=== PATIENT | female | born 1990 | race Caucasian/White ===

== ENCOUNTER 2017-02-27 22:00 | Emergency (ER) | payer OTHER ==
[2017-02-27 22:20] VITALS: BP 111/72; PULSE 89; RESP 16; TEMP 98.6; O2SAT 98
[2017-02-27] MEDS ORDERED: LURA20TA PO (22:28)
[2017-02-27] MEDS ORDERED: DEPA125T PO (22:28)
[2017-02-27 22:57] LABS: AUTOMATED NEUTROPHIL # 5.3 TH/MM3 (1.8-7.7); BASOPHIL % 0.4 % (0.0-2.0); EOSINOPHIL # 0.1 TH/MM3 (0-0.4); HEMATOCRIT 36.6 % (35.0-46.0); HEMO FLAGS DIFF FINAL; LYMPH % 33.2 % (9.0-44.0); LYMPHOCYTE # 3.3 TH/MM3 (1.0-4.8); MEAN CELL VOLUME 89.8 FL (80.0-100.0); MEAN CORPUSCULAR HEMOGLOBIN 30.7 PG (27.0-34.0); MEAN CORPUSCULAR HGB CONC 34.2 % (32.0-36.0); NEUT % 53.4 % (16.0-70.0); PLATELET COUNT 280 TH/MM3 (150-450); RED BLOOD COUNT 4.07 MIL/MM3 (4.00-5.30); RED CELL DISTRIBUTION WIDTH 14.3 % (11.6-17.2); WHITE BLOOD COUNT 9.9 TH/MM3 (4.0-11.0)
[2017-02-27 23:18] LABS: ANION GAP 9 MEQ/L (5-15)
[2017-02-27 23:28] LABS: ALKALINE PHOSPHATASE 46 U/L (45-117); ALT (GPT) 20 U/L (10-53); AST (GOT) 17 U/L (15-37); BICARBONATE 26.1 MEQ/L (21.0-32.0); BLOOD UREA NITROGEN 12 MG/DL (7-18); CHLORIDE 105 MEQ/L (98-107); GLOMERULAR FILTRATION RATE 103 ML/MIN (>89); POTASSIUM 3.9 MEQ/L (3.5-5.1); SODIUM (NA) 140 MEQ/L (136-145); TOTAL BILIRUBIN ADULT 0.1 MG/DL (0.2-1.0)
--- NOTE | 2017-02-27 23:32 | PD ---
HPI Chief Complaint: Psychiatric Symptoms Time Seen by Provider: 22:15 Travel History International Travel<30 days: No Contact w/Intl Traveler<30days: No Traveled to known affect area: No History of Present Illness HPI PT CAME IN UNDER [employer]. 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 patient stated her ideas were to jump in front of moving traffic and states she still has those thoughts now. ALL: LITHIUM (NO SPECIFIC INTERACTION DESCRIBED) PMHX: MILD RETARDATION AND BIPOLAR PFSH Past Medical History Bipolar Disorder: Yes Medical other: Yes (MILD RETARDATION) Influenza Vaccination: Yes ?: Not LMP: NOW Past Surgical History Surgical History: No Previous Surgery Social History Alcohol Use: No Tobacco Use: No Substance Use: No Allergies-Medications (Allergen,Severity, Reaction): Coded Allergies: lithium (Verified Allergy, Unknown, 02/27/17) Reported Meds & Prescriptions Reported Meds & Active Scripts Active Reported Depakote DR (Divalproex Sodium) 125 Mg Tabdr Unknown Dose PO DAILY Latuda (Lurasidone) 20 Mg Tab Unknown Dose PO DAILY Review of Systems Except as stated in HPI: all other systems reviewed are Neg General / Constitutional: No: Fever Eyes: No: Visual changes HENT: No: Headaches Cardiovascular: No: Chest Pain or Discomfort Respiratory: No: Shortness of Breath Gastrointestinal: No: Abdominal Pain Genitourinary: No: Dysuria Musculoskeletal: No: Pain Skin: No Rash Neurologic: No: Weakness Psychiatric: Positive: Suicidal Ideations Endocrine: No: Polydipsia Hematologic/Lymphatic: No: Easy Bruising Physical Exam Narrative GENERAL: SKIN: Warm and dry. HEAD: Atraumatic. Normocephalic. EYES: Pupils equal and round. No scleral icterus. No injection or drainage. ENT: No nasal bleeding or discharge. Mucous membranes pink and moist. NECK: Trachea midline. No JVD. CARDIOVASCULAR: Regular rate and rhythm. RESPIRATORY: No accessory muscle use. Clear to auscultation. Breath sounds equal bilaterally. GASTROINTESTINAL: Abdomen soft, non-tender, nondistended. Hepatic and splenic margins not palpable. MUSCULOSKELETAL: Extremities without clubbing, cyanosis, or edema. No obvious deformities. NEUROLOGICAL: Awake and alert. No obvious cranial nerve deficits. Motor grossly within normal limits. Five out of 5 muscle strength in the arms and legs. Normal speech. PSYCHIATRIC: DEPRESSED mood and SAD affect Data Data Last Documented VS Vital Signs Date Time Temp Pulse Resp B/P (MAP) Pulse Ox O2 Delivery O2 Flow Rate FiO2 02/27/17 22:20 98.6 89 16 111/72 (85) 98 Orders Orders Complete Blood Count With Diff (02/27/17 22:24) Comprehensive Metabolic Panel (02/27/17 22:24) Ed Urine Pregnancytest Poc (02/27/17 22:24) Electrocardiogram (02/27/17 22:24) Psych Screen (02/27/17 22:24) Drug Screen, Random Urine (02/27/17 22:24) Alcohol (Ethanol) (02/27/17 22:24) Salicylates (Aspirin) (02/27/17 22:24) Tylenol (Acetaminophen) (02/27/17 22:24) Valproic Acid (Depakene) (02/27/17 23:33) Zolpidem (Ambien) (02/28/17 00:15) Labs Laboratory Tests Test 02/27/17 22:20 02/27/17 22:45 Urine Opiates Screen NEG Urine Barbiturates Screen NEG Urine Amphetamines Screen NEG Urine Benzodiazepines Screen NEG Urine Cocaine Screen NEG Urine Cannabinoids Screen NEG White Blood Count 9.9 TH/MM3 Red Blood Count 4.07 MIL/MM3 Hemoglobin 12.5 GM/DL Hematocrit 36.6 % Mean Corpuscular Volume 89.8 FL Mean Corpuscular Hemoglobin 30.7 PG Mean Corpuscular Hemoglobin Concent 34.2 % Red Cell Distribution Width 14.3 % Platelet Count 280 TH/MM3 Mean Platelet Volume 7.4 FL Neutrophils (%) (Auto) 53.4 % Lymphocytes (%) (Auto) 33.2 % Monocytes (%) (Auto) 12.0 % Eosinophils (%) (Auto) 1.0 % Basophils (%) (Auto) 0.4 % Neutrophils # (Auto) 5.3 TH/MM3 Lymphocytes # (Auto) 3.3 TH/MM3 Monocytes # (Auto) 1.2 TH/MM3 Eosinophils # (Auto) 0.1 TH/MM3 Basophils # (Auto) 0.0 TH/MM3 CBC Comment DIFF FINAL Differential Comment Blood Urea Nitrogen 12 MG/DL Creatinine 0.70 MG/DL Random Glucose 87 MG/DL Total Protein 7.8 GM/DL Albumin 3.7 GM/DL Calcium Level 8.4 MG/DL Alkaline Phosphatase 46 U/L Aspartate Amino Transf (AST/SGOT) 17 U/L Alanine Aminotransferase (ALT/SGPT) 20 U/L Total Bilirubin 0.1 MG/DL Sodium Level 140 MEQ/L Potassium Level 3.9 MEQ/L Chloride Level 105 MEQ/L Carbon Dioxide Level 26.1 MEQ/L Anion Gap 9 MEQ/L Estimat Glomerular Filtration Rate 103 ML/MIN Salicylates Level LESS THAN 1.7 MG/DL Acetaminophen Level LESS THAN 2.0 MCG/ML Valproic Acid (Depakene) Level 61 MCG/ML Ethyl Alcohol Level LESS THAN 3 MG/DL MDM Medical Decision Making Medical Screen Exam Complete: Yes Emergency Medical Condition: Yes Medical Record Reviewed: Yes Interpretation(s) nsr, 82, no stemi, nl intervals Differential Diagnosis ANEMIA V DEHYDRATION V electrolyte abnl v depakote od v other coingestions v etoh Narrative Course patient medically cleared after tox screen neg, depakote level not supratherapeutic, no e/o anemia/dehydration or electrolyte abnormality nor any alcohol use. Diagnosis Primary Impression: mchugh act-medically cleared Heron Bran MD Feb 27, 2017 23:32
[2017-02-27 23:40] LABS: ACETAMINOPHEN LESS THAN 2.0 MCG/ML (10.0-30.0); ALCOHOL LESS THAN 3 MG/DL (0-5)
[2017-02-28] MEDS ORDERED: ZOLPIDEM TARTRATE 5 MG TAB PO ONE (00:15)
[2017-02-28 06:12] VITALS: BP 113/56; PULSE 70; RESP 18
[2017-02-28] MEDS ORDERED: DIVA500T3 PO (07:47)
[2017-02-28] MEDS ORDERED: TRAZ50TA12 PO (07:48)
[2017-02-28] MEDS ORDERED: ESCI20TA PO (07:48)
[2017-02-28] MEDS ORDERED: VITA2000 PO (07:49)
[2017-02-28] MEDS ORDERED: MULT-65 PO (07:50)
[2017-02-28] MEDS ORDERED: BENZ0.5T PO (07:51)
[2017-02-28] MEDS ORDERED: LURA1TAB2 PO (07:52)
[2017-02-28] MEDS ORDERED: TYLE325T PO (07:55)
[2017-02-28 11:46] VITALS: BP 116/82; PULSE 75; RESP 18; O2SAT 100
--- NOTE | 2017-02-28 12:02 | PD ---
History of Present Illness Chief Complaint: Psychiatric Symptoms Time Seen by Provider: 12:00 Travel History International Travel<30 Days: No Contact w/Intl Traveler<30days: No Known affected area: No Legal Status Legal Status: Carr Act Carr Act Signed By: Cy Thibodeaux Carr Act Comment: 2016 @ 2014 History of Present Illness: 26-year-old mentally retarded female presenting under a Carr act for making suicidal threats. Patient apparently wants to leave her penitentiary because she was not allowed to get a fish tank. This is what prompted her suicidal thinking. Since her arrival in [facility], the patient has been calm, pleasant and cooperative. She has repeatedly denied any suicidal or homicidal ideation, plan or intent. She has no psychotic symptoms and her cognition is intact. She is verbally alba for safety and she is competent to do so. PFSH Past Medical History Bipolar Disorder: Yes Medical other: Yes (MILD RETARDATION) Influenza Vaccination: Yes ?: Not LMP: NOW Past Surgical History Surgical History: No Previous Surgery Psychiatric History Psychiatric History Hx Psychiatric Treatment: BI- POLAR DISORDER. No current significant objective clinical evidence of bipolar disorder is seen. History of Inpatient Treatment: No Guns or firearms in home: No Social History Hx Alcohol Use: No Hx Tobacco Use: No Hx Substance Use: No Hx of Substance Use Treatment: No Allergies-Medications (Allergen,Severity, Reaction): Coded Allergies: lithium (Verified Allergy, Unknown, 02/28/17) Per MAR sent by [facility] [phone]. Reported Meds & Prescriptions Reported Meds & Active Scripts Active Reported Tylenol (Acetaminophen) 325 Mg Tab 325 Mg PO Q4H PRN Tylenol (Acetaminophen) 325 Mg Tab 325 Mg PO Q4H PRN Latuda (Lurasidone) 60 Mg Tab 60 Mg PO DAILY@1700 Benztropine (Benztropine Mesylate) 0.5 Mg Tab 0.5 Mg PO HS Multi-Vitamin Daily (Multiple Vitamin) 1 Tab Tab 1 Tab PO DAILY Vitamin D3 (Cholecalciferol) 2,000 Unit Cap 2,000 Units PO DAILY Trazodone (Trazodone HCl) 50 Mg Tab 50 Mg PO HS Escitalopram (Escitalopram Oxalate) 20 Mg Tab 20 Mg PO DAILY Divalproex ER (Divalproex Sodium) 500 Mg Tab 500 Mg PO BID Review of Systems Except as stated in HPI: all other systems reviewed are Neg Mental Status Examination Appearance: Appropriate Consciousness: Alert Orientation: x4 Motor Activity: Normal gait Speech: Unremarkable Language: Adequate Fund of Knowledge: Adequate Attention and Concentration: Adequate Memory: Unremarkable Mood: Appropriate Affect: Appropriate Thought Process & Associations: Intact Thought Content: Appropriate Hallucination Type: None Delusion Type: None Suicidal Ideation: No Suicidal Plan: No Suicidal Intention: No Homicidal Ideation: No Homicidal Plan: No Homicidal Intention: No Insight: Adequate Judgment: Adequate MDM Medical Decision Making Medical Record Reviewed: Yes Assessment/Plan Patient interviewed in person by this physician with nurse Quijano. Case discussed with nurse Quijano. Medical record reviewed. Patient does not meet criteria for Carr act or involuntary psychiatric hospitalization. She can be treated on an outpatient basis if she has repeated episodes of frustration and impulsivity. Orders Orders Complete Blood Count With Diff (02/27/17 22:24) Comprehensive Metabolic Panel (02/27/17 22:24) Ed Urine Pregnancytest Poc (02/27/17 22:24) Electrocardiogram (02/27/17 22:24) Psych Screen (02/27/17 22:24) Drug Screen, Random Urine (02/27/17 22:24) Alcohol (Ethanol) (02/27/17 22:24) Salicylates (Aspirin) (02/27/17 22:24) Tylenol (Acetaminophen) (02/27/17 22:24) Valproic Acid (Depakene) (02/27/17 23:33) Zolpidem (Ambien) (02/28/17 00:15) Diet Regular Basic (02/28/17 Breakfast) Diet Regular Basic (02/28/17 Lunch) Results Vital Signs Date Time Temp Pulse Resp B/P (MAP) Pulse Ox O2 Delivery O2 Flow Rate FiO2 02/28/17 11:46 75 18 116/82 (93) 100 Room Air 02/28/17 06:12 70 18 113/56 (75) Room Air 02/27/17 22:20 98.6 89 16 111/72 (85) 98 Laboratory Tests Test 02/27/17 22:20 02/27/17 22:45 Urine Opiates Screen NEG Urine Barbiturates Screen NEG Urine Amphetamines Screen NEG Urine Benzodiazepines Screen NEG Urine Cocaine Screen NEG Urine Cannabinoids Screen NEG White Blood Count 9.9 Red Blood Count 4.07 Hemoglobin 12.5 Hematocrit 36.6 Mean Corpuscular Volume 89.8 Mean Corpuscular Hemoglobin 30.7 Mean Corpuscular Hemoglobin Concent 34.2 Red Cell Distribution Width 14.3 Platelet Count 280 Mean Platelet Volume 7.4 Neutrophils (%) (Auto) 53.4 Lymphocytes (%) (Auto) 33.2 Monocytes (%) (Auto) 12.0 Eosinophils (%) (Auto) 1.0 Basophils (%) (Auto) 0.4 Neutrophils # (Auto) 5.3 Lymphocytes # (Auto) 3.3 Monocytes # (Auto) 1.2 Eosinophils # (Auto) 0.1 Basophils # (Auto) 0.0 CBC Comment DIFF FINAL Differential Comment Blood Urea Nitrogen 12 Creatinine 0.70 Random Glucose 87 Total Protein 7.8 Albumin 3.7 Calcium Level 8.4 Alkaline Phosphatase 46 Aspartate Amino Transf (AST/SGOT) 17 Alanine Aminotransferase (ALT/SGPT) 20 Total Bilirubin 0.1 Sodium Level 140 Potassium Level 3.9 Chloride Level 105 Carbon Dioxide Level 26.1 Anion Gap 9 Estimat Glomerular Filtration Rate 103 Salicylates Level LESS THAN 1.7 Acetaminophen Level LESS THAN 2.0 Valproic Acid (Depakene) Level 61 Ethyl Alcohol Level LESS THAN 3 Diagnosis Primary Impression: Adjustment disorder with mixed disturbance of emotions and conduct Jose Deluna MD Feb 28, 2017 12:02
--- NOTE | 2017-02-28 12:27 | PD ---
Physical Exam Date Seen by Provider: Feb 28, 2017 Narrative 26 y female made comment to stranger that she was going to kill herself by walking into traffic. Pt was seen by previous provider and sent to [facility] for eval by psych. Dr. Deluna saw this pt and lifted the Carr Act. Pt denies SI or HI at this point. She wants a new alf. She will follow up with psych outpatient. Data Data Last Documented VS Vital Signs Date Time Temp Pulse Resp B/P (MAP) Pulse Ox O2 Delivery O2 Flow Rate FiO2 02/28/17 16:07 02/28/17 11:46 75 18 100 Room Air 02/27/17 22:20 98.6 Orders Orders Complete Blood Count With Diff (02/27/17 22:24) Comprehensive Metabolic Panel (02/27/17 22:24) Ed Urine Pregnancytest Poc (02/27/17 22:24) Electrocardiogram (02/27/17 22:24) Psych Screen (02/27/17 22:24) Drug Screen, Random Urine (02/27/17 22:24) Alcohol (Ethanol) (02/27/17 22:24) Salicylates (Aspirin) (02/27/17 22:24) Tylenol (Acetaminophen) (02/27/17 22:24) Valproic Acid (Depakene) (02/27/17 23:33) Zolpidem (Ambien) (02/28/17 00:15) Diet Regular Basic (02/28/17 Breakfast) Diet Regular Basic (02/28/17 Lunch) Divalproex Er (Depakote Er) (02/28/17 12:45) Escitalopram (Lexapro) (02/28/17 12:45) Ed Discharge Order (02/28/17 12:40) Labs Laboratory Tests Test 02/27/17 22:20 02/27/17 22:45 Urine Opiates Screen NEG Urine Barbiturates Screen NEG Urine Amphetamines Screen NEG Urine Benzodiazepines Screen NEG Urine Cocaine Screen NEG Urine Cannabinoids Screen NEG White Blood Count 9.9 TH/MM3 Red Blood Count 4.07 MIL/MM3 Hemoglobin 12.5 GM/DL Hematocrit 36.6 % Mean Corpuscular Volume 89.8 FL Mean Corpuscular Hemoglobin 30.7 PG Mean Corpuscular Hemoglobin Concent 34.2 % Red Cell Distribution Width 14.3 % Platelet Count 280 TH/MM3 Mean Platelet Volume 7.4 FL Neutrophils (%) (Auto) 53.4 % Lymphocytes (%) (Auto) 33.2 % Monocytes (%) (Auto) 12.0 % Eosinophils (%) (Auto) 1.0 % Basophils (%) (Auto) 0.4 % Neutrophils # (Auto) 5.3 TH/MM3 Lymphocytes # (Auto) 3.3 TH/MM3 Monocytes # (Auto) 1.2 TH/MM3 Eosinophils # (Auto) 0.1 TH/MM3 Basophils # (Auto) 0.0 TH/MM3 CBC Comment DIFF FINAL Differential Comment Blood Urea Nitrogen 12 MG/DL Creatinine 0.70 MG/DL Random Glucose 87 MG/DL Total Protein 7.8 GM/DL Albumin 3.7 GM/DL Calcium Level 8.4 MG/DL Alkaline Phosphatase 46 U/L Aspartate Amino Transf (AST/SGOT) 17 U/L Alanine Aminotransferase (ALT/SGPT) 20 U/L Total Bilirubin 0.1 MG/DL Sodium Level 140 MEQ/L Potassium Level 3.9 MEQ/L Chloride Level 105 MEQ/L Carbon Dioxide Level 26.1 MEQ/L Anion Gap 9 MEQ/L Estimat Glomerular Filtration Rate 103 ML/MIN Salicylates Level LESS THAN 1.7 MG/DL Acetaminophen Level LESS THAN 2.0 MCG/ML Valproic Acid (Depakene) Level 61 MCG/ML Ethyl Alcohol Level LESS THAN 3 MG/DL MDM Supervised Visit with SALUD: Yes Diagnosis Primary Impression: Adjustment disorder with mixed disturbance of emotions and conduct Brittany Redding Feb 28, 2017 12:27
[2017-02-28] MEDS ORDERED: ESCITALOPRAM OXALATE 20 MG TAB PO ONE (12:45)
[2017-02-28] MEDS ORDERED: DIVALPROEX SODIUM E.R. 500 MG TAB PO ONE (12:45)
--- NOTE | 2017-03-02 08:50 | EKG ---
Date Performed: 02/27/2017 Time Performed: 22:53:21 PTAGE: 26 years EKG: Sinus rhythm NORMAL ECG NO PREVIOUS TRACING DOCTOR: Malik Del Cid Interpretating Date/Time 03/02/2017 08:48:08
== END 2017-02-28 16:20 | disposition home or self-care (01) ==
LOC: NEPD 22:00 → NEPJ 02-28 16:20
DX: F43.25 Adjustment disorder with mixed disturbance of emotions and conduct (principal); F31.9 Bipolar disorder, unspecified; F70 Mild intellectual disabilities
CPT/HCPCS: 80053; 80164; 80307; 84703; 85025; 93005; 99285

== ENCOUNTER 2017-02-28 19:23 | Observation (INO) | payer OTHER ==
[~2017-02-28] VITALS: Ht 157.5 cm; Wt 68.0 kg
[~2017-02-28 19:23] MED LIST: BENZ0.5T PO; DEPA125T PO; DIVA500T3 PO; ESCI20TA PO; LURA1TAB2 PO; LURA20TA PO; MULT-65 PO; TRAZ50TA12 PO; TYLE325T PO; VITA2000 PO
[2017-02-28 19:41] VITALS: BP 117/68; PULSE 80; RESP 16; TEMP 98.6; O2SAT 98
--- NOTE | 2017-03-01 00:22 | PD ---
HPI Chief Complaint: Psychiatric Symptoms Time Seen by Provider: 00:19 Travel History International Travel<30 days: No Contact w/Intl Traveler<30days: No Traveled to known affect area: No History of Present Illness HPI Patient comes emergency Department under Carr act by police. Patient states she got upset and threw something. Patient denies any medical complaints at this time. Denies any chest pain, shortness of breath, fevers, coughing, headache, nausea, vomiting, or loss or change in bowel or bladder. Denies anything making her symptoms better or worse. PFSH Past Medical History Bipolar Disorder: Yes ?: Unknown Social History Alcohol Use: No Tobacco Use: No Substance Use: No Allergies-Medications (Allergen,Severity, Reaction): Coded Allergies: lithium (Verified Allergy, Unknown, 02/28/17) Per MAR sent by [facility] [phone]. Reported Meds & Prescriptions Reported Meds & Active Scripts Active Reported Tylenol (Acetaminophen) 325 Mg Tab 325 Mg PO Q4H PRN Tylenol (Acetaminophen) 325 Mg Tab 325 Mg PO Q4H PRN Latuda (Lurasidone) 60 Mg Tab 60 Mg PO DAILY@1700 Benztropine (Benztropine Mesylate) 0.5 Mg Tab 0.5 Mg PO HS Multi-Vitamin Daily (Multiple Vitamin) 1 Tab Tab 1 Tab PO DAILY Vitamin D3 (Cholecalciferol) 2,000 Unit Cap 2,000 Units PO DAILY Trazodone (Trazodone HCl) 50 Mg Tab 50 Mg PO HS Escitalopram (Escitalopram Oxalate) 20 Mg Tab 20 Mg PO DAILY Divalproex ER (Divalproex Sodium) 500 Mg Tab 500 Mg PO BID Review of Systems Except as stated in HPI: all other systems reviewed are Neg Physical Exam Narrative GENERAL: Well-developed, overly nourished, in no acute distress, and non-ill appearing. SKIN: Focused skin assessment warm and dry. HEAD: Atraumatic. Normocephalic. EYES: Pupils equal and round. EOMI. No scleral icterus. No injection or drainage. ENT: No nasal bleeding or discharge. Mucous membranes pink and moist. NECK: Trachea midline. Supple. No nuclear rigidity. CARDIOVASCULAR: Regular rate and rhythm. No murmur appreciated. RESPIRATORY: No accessory muscle use. No respiratory distress. Clear to auscultation. Breath sounds equal bilaterally. MUSCULOSKELETAL: No obvious deformities. No clubbing. No cyanosis. No edema. Full range of motion. NEUROLOGICAL: Awake and alert. No obvious cranial nerve deficits. Motor grossly within normal limits. Normal speech. PSYCHIATRIC: Appropriate mood and affect; insight and judgment normal. Data Data Last Documented VS Vital Signs Date Time Temp Pulse Resp B/P (MAP) Pulse Ox O2 Delivery O2 Flow Rate FiO2 02/28/17 19:41 98.6 80 16 117/68 (84) 98 MDM Medical Decision Making Medical Screen Exam Complete: Yes Emergency Medical Condition: Yes Differential Diagnosis Homicidal, suicidal, adjustment disorder Narrative Course Patient was seen and examined. Labs were reviewed from of this month. No additional laboratory studies needed this time.. Patient medically cleared for further treatment and evaluation by psych. Final disposition per psych. Diagnosis Primary Impression: Medical clearance for psychiatric admission Condition: Stable Korey Angelo Mar 01, 2017 00:22
[2017-03-01 00:26] VITALS: BP 107/68; PULSE 87; RESP 20; O2SAT 100
[2017-03-01 08:15] VITALS: BP 111/81; PULSE 87; RESP 20; O2SAT 100
--- NOTE | 2017-03-01 12:16 | PD ---
History of Present Illness Chief Complaint: Psychiatric Symptoms Time Seen by Provider: 12:15 Travel History International Travel<30 Days: No Contact w/Intl Traveler<30days: No Known affected area: No History of Present Illness: 26-year-old female known to this physician, seen yesterday, and returned under a Carr act for throwing something at her [facility]. Patient is not happy at her [facility] and becomes frustrated and acts out. However, she is not voicing any suicidal or homicidal ideation, plan or intent. She demonstrates no psychotic thinking. Her cognition is intact. This physician discussed her changing group homes and that this would be a project for her drum tender. Patient's drum tender reportedly does not care about her. Patient can request a different drum tender and was told so. However, these interactions do not qualify for psychiatric hospitalization. In fact, it would be counter therapeutic to hospitalize patient for these reasons. PFSH Past Medical History Bipolar Disorder: Yes ?: Unknown Psychiatric History Psychiatric History Hx Psychiatric Treatment: BI- POLAR DISORDER. No current significant objective clinical evidence of bipolar disorder is seen.. Once again, no significant objective clinical evidence of bipolar disorder is seen on 03/01/2017 History of Inpatient Treatment: No Social History Hx Alcohol Use: No Hx Tobacco Use: No Hx Substance Use: No Hx of Substance Use Treatment: No Allergies-Medications (Allergen,Severity, Reaction): Coded Allergies: lithium (Verified Allergy, Unknown, 02/28/17) Per MAR sent by [facility] [phone]. Reported Meds & Prescriptions Reported Meds & Active Scripts Active Reported Tylenol (Acetaminophen) 325 Mg Tab 325 Mg PO Q4H PRN Tylenol (Acetaminophen) 325 Mg Tab 325 Mg PO Q4H PRN Latuda (Lurasidone) 60 Mg Tab 60 Mg PO DAILY@1700 Benztropine (Benztropine Mesylate) 0.5 Mg Tab 0.5 Mg PO HS Multi-Vitamin Daily (Multiple Vitamin) 1 Tab Tab 1 Tab PO DAILY Vitamin D3 (Cholecalciferol) 2,000 Unit Cap 2,000 Units PO DAILY Trazodone (Trazodone HCl) 50 Mg Tab 50 Mg PO HS Escitalopram (Escitalopram Oxalate) 20 Mg Tab 20 Mg PO DAILY Divalproex ER (Divalproex Sodium) 500 Mg Tab 500 Mg PO BID Review of Systems Except as stated in HPI: all other systems reviewed are Neg Mental Status Examination Appearance: Appropriate Consciousness: Alert Orientation: x4 Motor Activity: Normal gait Speech: Unremarkable Language: Adequate Fund of Knowledge: Adequate Attention and Concentration: Adequate Memory: Unremarkable Mood: Appropriate Affect: Appropriate Thought Process & Associations: Intact Thought Content: Appropriate Hallucination Type: None Delusion Type: None Suicidal Ideation: No Suicidal Plan: No Suicidal Intention: No Homicidal Ideation: No Homicidal Plan: No Homicidal Intention: No Insight: Adequate Judgment: Adequate MDM Medical Decision Making Medical Record Reviewed: Yes Assessment/Plan Patient interviewed at bedside. Medical record reviewed. Case discussed with nurse Yanni. Patient does not meet criteria for Carr act or involuntary psychiatric hospitalization. Orders Orders Diet Regular Basic (03/01/17 Breakfast) Results Vital Signs Date Time Temp Pulse Resp B/P (MAP) Pulse Ox O2 Delivery O2 Flow Rate FiO2 03/01/17 08:15 87 20 111/81 (91) 100 Room Air 03/01/17 00:26 87 20 107/68 (81) 100 Room Air 02/28/17 19:41 98.6 80 16 117/68 (84) 98 Diagnosis Primary Impression: Adjustment disorder with mixed disturbance of emotions and conduct Condition: Stable Jose Deluna MD Mar 01, 2017 12:16
--- NOTE | 2017-03-01 13:49 | PD ---
Physical Exam Time Seen by Provider: 13:46 Data Data Last Documented VS Vital Signs Date Time Temp Pulse Resp B/P (MAP) Pulse Ox O2 Delivery O2 Flow Rate FiO2 03/01/17 08:15 87 20 111/81 (91) 100 Room Air 02/28/17 19:41 98.6 Orders Orders Diet Regular Basic (03/01/17 Breakfast) Admit Order (Ed Use Only) (03/01/17 13:45) MDM Supervised Visit with SALUD: No Narrative Course Dr. Deluna has evaluated the patient, lifted the Carr act and clear the patient for discharge. Case management has been working on getting the patient back to her [facility] and they will not accept her. Case management has been unable to place the patient and recommends for the patient to be admitted for social issues and unsafe discharge. Call placed to [facility] for admission. [id number]: I spoke with LORI Diallo and the patient will be admitted for observation for unsafe discharge and social issues. Physician Communication Physician Communication LORI Diallo Diagnosis Primary Impression: Adjustment disorder with mixed disturbance of emotions and conduct Additional Impressions: unsafe discharge social issues Admitting Information Admitting Physician Requests: Observation Condition: Stable Verónica Lance Mar 01, 2017 13:49
[2017-03-01 14:28] VITALS: BP 103/67; PULSE 80; RESP 22; O2SAT 96
[2017-03-01] MEDS ORDERED: PILL SPLITTER OTHER PRN (17:00)
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
[2017-03-01 17:31] VITALS: BP 121/85; PULSE 124; RESP 22; TEMP 98.5; O2SAT 97
[2017-03-01] MEDS: LURASIDONE 40 MG TAB PO SCH (18:44)
[2017-03-01 19:23] VITALS: BP 115/60; PULSE 88; RESP 17; TEMP 98.1; O2SAT 99
[2017-03-01] MEDS: BENZTROPINE MESYLATE 1 MG TAB PO SCH (20:23)
[2017-03-01] MEDS: traZODone HCL 50 MG TAB PO SCH (20:24)
[2017-03-01] MEDS: DIVALPROEX SODIUM E.R. 500 MG TAB PO SCH (20:24)
[2017-03-01 23:44] VITALS: BP 114/58; PULSE 89; RESP 17; TEMP 97.9; O2SAT 97
[2017-03-02 04:04] VITALS: BP 112/58; PULSE 89; RESP 17; TEMP 98.1; O2SAT 97
[2017-03-02 07:34] VITALS: BP 108/72; PULSE 80; RESP 18; TEMP 97.7; O2SAT 99
[2017-03-02] MEDS: MULTIVITAMIN TAB PO SCH (08:58)
[2017-03-02] MEDS: CHOLECALCIFEROL (VIT D3) 1000 UNIT TAB PO SCH (08:58)
[2017-03-02] MEDS: ESCITALOPRAM OXALATE 20 MG TAB PO SCH (08:59)
[2017-03-02] MEDS: DIVALPROEX SODIUM E.R. 500 MG TAB PO SCH ×2 (08:59→19:59)
[2017-03-02 11:49] VITALS: BP 100/57; PULSE 80; RESP 16; TEMP 97.4; O2SAT 98
--- NOTE | 2017-03-02 12:42 | HHI.PR ---
Objective Vitals Vital Signs Date Time Temp Pulse Resp B/P (MAP) Pulse Ox O2 Delivery O2 Flow Rate FiO2 03/02/17 11:49 97.4 80 16 100/57 (71) 98 03/02/17 07:34 97.7 80 18 108/72 (84) 99 03/02/17 04:04 98.1 89 17 112/58 (76) 97 03/01/17 23:44 97.9 89 17 114/58 (76) 97 03/01/17 19:23 98.1 88 17 115/60 (78) 99 03/01/17 17:31 98.5 124 22 121/85 (97) 97 03/01/17 17:00 03/01/17 14:28 80 22 103/67 (79) 96 Room Air I/O 03/01/17 03/01/17 03/01/17 03/02/17 03/02/17 03/02/17 07:00 15:00 23:00 07:00 15:00 23:00 Intake Total 500 ml Balance 500 ml Intake Oral 500 ml # Voids 3 Dami Sawant MD Mar 02, 2017 12:42
[2017-03-02 15:28] VITALS: BP 103/68; PULSE 78; RESP 18; TEMP 98.2; O2SAT 99
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
[2017-03-02] MEDS: LURASIDONE 40 MG TAB PO SCH (17:05)
[2017-03-02 19:32] VITALS: BP 127/74; PULSE 78; RESP 18; TEMP 98; O2SAT 98
[2017-03-02] MEDS: BENZTROPINE MESYLATE 1 MG TAB PO SCH (19:59)
[2017-03-02] MEDS: traZODone HCL 50 MG TAB PO SCH (19:59)
[2017-03-03 00:21] VITALS: BP 105/69; PULSE 78; RESP 18; TEMP 98.1; O2SAT 98
[2017-03-03 04:59] VITALS: BP 122/68; PULSE 68; RESP 18; TEMP 97.8; O2SAT 100
[2017-03-03 08:07] VITALS: BP 106/65; PULSE 63; RESP 18; TEMP 98; O2SAT 99
[2017-03-03] MEDS: DIVALPROEX SODIUM E.R. 500 MG TAB PO SCH ×2 (09:40→22:02)
[2017-03-03] MEDS: ESCITALOPRAM OXALATE 20 MG TAB PO SCH (09:40)
[2017-03-03] MEDS: MULTIVITAMIN TAB PO SCH (09:40)
[2017-03-03] MEDS: CHOLECALCIFEROL (VIT D3) 1000 UNIT TAB PO SCH (09:40)
[2017-03-03 11:59] VITALS: BP 100/68; PULSE 74; RESP 16; TEMP 98; O2SAT 98
[2017-03-03 15:33] VITALS: BP 99/60; PULSE 85; RESP 18; TEMP 98.1; O2SAT 98
--- NOTE | 2017-03-03 15:33 | HHI.PR ---
Subjective Remarks Patient says she feels all right. Denies any chest pain or shortness of breath. Denies any nausea or vomiting. denies constipation. Objective Vital Signs Date Time Temp Pulse Resp B/P (MAP) Pulse Ox O2 Delivery O2 Flow Rate FiO2 03/03/17 11:59 98.0 74 16 100/68 (79) 98 03/03/17 08:07 98.0 63 18 106/65 (79) 99 03/03/17 04:59 97.8 68 18 122/68 (86) 100 03/03/17 00:21 98.1 78 18 105/69 (81) 98 03/02/17 19:32 98.0 78 18 127/74 (91) 98 I/O 03/02/17 03/02/17 03/02/17 03/03/17 03/03/17 03/03/17 07:00 15:00 23:00 07:00 15:00 23:00 Intake Total 500 ml 500 ml 500 ml Balance 500 ml 500 ml 500 ml Intake Oral 500 ml 500 ml 500 ml # Voids 3 2 3 # Bowel Movements 1 Objective Remarks GENERAL: Sitting up in bed. Appears comfortable. pt seen with nurse. SKIN: Warm and dry. HEAD: Normocephalic. EYES: No scleral icterus. No injection or drainage. CARDIOVASCULAR: Regular rate and rhythm without murmurs, gallops, or rubs. RESPIRATORY: Breath sounds equal bilaterally. No accessory muscle use. GASTROINTESTINAL: Abdomen soft, non-tender, nondistended. MUSCULOSKELETAL: No cyanosis, or edema. A/P Assessment and Plan Patient seen and examined on 03/03. No changes in management. Patient is a 26-year-old female admitted for //Placement issue . intermediate that she came from refused to take her back and patient herself doesn't want to go back there. manager community outreach consulted //History of bipolar disorder //Mild mental retardation We'll continue on home meds. Discharge Planning Case management assistance appreciated. Osiel Castellon MD Mar 03, 2017 15:33
[2017-03-03] MEDS: LURASIDONE 40 MG TAB PO SCH (17:30)
[2017-03-03 19:29] VITALS: BP 121/75; PULSE 76; RESP 18; TEMP 98.7; O2SAT 99
[2017-03-03] MEDS: traZODone HCL 50 MG TAB PO SCH (22:02)
[2017-03-03] MEDS: BENZTROPINE MESYLATE 1 MG TAB PO SCH (22:03)
[2017-03-04] MEDS: ACETAMINOPHEN 325 MG TAB PO PRN ×2 (01:43→21:17)
[2017-03-04 08:24] VITALS: BP 116/80; PULSE 68; RESP 20; TEMP 97.9; O2SAT 65
[2017-03-04] MEDS: DIVALPROEX SODIUM E.R. 500 MG TAB PO SCH ×2 (09:27→21:17)
[2017-03-04] MEDS: ESCITALOPRAM OXALATE 20 MG TAB PO SCH (09:27)
[2017-03-04] MEDS: MULTIVITAMIN TAB PO SCH (09:27)
[2017-03-04] MEDS: CHOLECALCIFEROL (VIT D3) 1000 UNIT TAB PO SCH (09:28)
--- NOTE | 2017-03-04 10:09 | HHI.PR ---
Subjective Remarks Patient seen walking in [place]. Says she feels fine. No complaints. Objective Vital Signs Date Time Temp Pulse Resp B/P (MAP) Pulse Ox O2 Delivery O2 Flow Rate FiO2 03/04/17 08:24 97.9 68 20 116/80 (92) 65 03/03/17 19:29 98.7 76 18 121/75 (90) 99 03/03/17 15:33 98.1 85 18 99/60 (73) 98 03/03/17 11:59 98.0 74 16 100/68 (79) 98 I/O 03/03/17 03/03/17 03/03/17 03/04/17 03/04/17 03/04/17 07:00 15:00 23:00 07:00 15:00 23:00 Intake Total 500 ml Balance 500 ml Intake Oral 500 ml # Voids 3 5 Objective Remarks GENERAL: In nathan. Appears comfortable. A/P Assessment and Plan Patient seen on 03/04. No changes in management. Patient is a 26-year-old female admitted for //Placement issue . longterm that she came from refused to take her back and patient herself doesn't want to go back there. warranty manager consulted //History of bipolar disorder //Mild mental retardation We'll continue on home meds. Discharge Planning Case management assistance appreciated. Osiel Castellon MD Mar 04, 2017 10:08
[2017-03-04 12:32] VITALS: PULSE 62; RESP 20; TEMP 97.8; O2SAT 96
[2017-03-04 16:28] VITALS: BP 116/68; PULSE 68; RESP 20; TEMP 98.2; O2SAT 98
[2017-03-04] MEDS: LURASIDONE 40 MG TAB PO SCH (17:27)
[2017-03-04 20:08] VITALS: BP 122/66; PULSE 68; RESP 18; TEMP 98; O2SAT 97
[2017-03-04] MEDS: traZODone HCL 50 MG TAB PO SCH (21:16)
[2017-03-04] MEDS: BENZTROPINE MESYLATE 1 MG TAB PO SCH (21:18)
[2017-03-05 06:32] VITALS: BP 103/54; PULSE 61; RESP 18; TEMP 98.7; O2SAT 100
[2017-03-05 08:16] VITALS: BP 103/62; PULSE 70; RESP 15; TEMP 95.7; O2SAT 96
[2017-03-05] MEDS: CHOLECALCIFEROL (VIT D3) 1000 UNIT TAB PO SCH (08:19)
[2017-03-05] MEDS: MULTIVITAMIN TAB PO SCH (08:19)
[2017-03-05] MEDS: DIVALPROEX SODIUM E.R. 500 MG TAB PO SCH (08:19)
[2017-03-05] MEDS: ESCITALOPRAM OXALATE 20 MG TAB PO SCH (08:20)
[2017-03-05] MEDS ORDERED: ALPR.25 PO (09:47)
--- NOTE | 2017-03-05 09:47 | HHI.DCPOC ---
Discharge Care Plan Diagnosis: (1) Adjustment disorder with mixed disturbance of emotions and conduct Goals to Promote Your Health * To prevent worsening of your condition and complications * To maintain your health at the optimal level Directions to Meet Your Goals Take your medications as prescribed Follow your dietary instruction Follow activity as directed Keep your appointments as scheduled Take your immunizations and boosters as scheduled If your symptoms worsen call your PCP, if no PCP go to Urgent Care Center or Emergency Room Smoking is Dangerous to Your Health. Avoid second hand smoke Call the 24-hour hour crisis hotline for domestic abuse at Merari Velasco PA-C Mar 05, 2017 9:47 am
--- NOTE | 2017-03-05 09:55 | HHI.PR ---
Subjective Remarks Follow up for placement issue. The patient is seen ambulating the hallways. She denies any medical complaints. She is looking forward to hopefully going home soon. Objective Vitals Vital Signs Date Time Temp Pulse Resp B/P (MAP) Pulse Ox O2 Delivery O2 Flow Rate FiO2 03/05/17 08:16 95.7 70 15 103/62 (76) 96 03/05/17 06:32 98.7 61 18 103/54 (70) 100 03/04/17 20:08 98.0 68 18 122/66 (84) 97 03/04/17 16:28 98.2 68 20 116/68 (84) 98 03/04/17 12:32 97.8 62 20 96 I/O 03/04/17 03/04/17 03/04/17 03/05/17 03/05/17 03/05/17 07:00 15:00 23:00 07:00 15:00 23:00 # Voids 1 Objective Remarks GENERAL: Well-nourished, well-developed young female patient in [facility]. Ambulatory. SKIN: Warm and dry. No rash. HEENT: Normocephalic. Atraumatic. Pupils equal and round. Mucous membranes pink and moist. NECK: Supple. Trachea midline. CARDIOVASCULAR: Regular rate and rhythm. S1, S2 noted. No murmur appreciated. RESPIRATORY: No accessory muscle use. Clear to auscultation. Breath sounds equal bilaterally. GASTROINTESTINAL: Abdomen soft, non-tender, nondistended. Normoactive bowel sounds x4. MUSCULOSKELETAL: No obvious deformities. Extremities without clubbing, cyanosis , or edema. NEUROLOGICAL: Awake and alert. No obvious cranial nerve deficits. Motor grossly within normal limits. Normal speech. PSYCHIATRIC: Appropriate mood and affect; insight and judgment normal. Medications and IVs Current Medications Medications (Trade) Dose Ordered Sig/Luis Route Start Time Stop Time Status Last Admin (Tylenol) 325 mg Q4H PRN PO 03/01/17 17:00 03/04/17 21:17 (Cogentin) 0.5 mg HS PO 03/01/17 21:00 03/04/17 21:18 (Vitamin D3) 2,000 units DAILY PO 03/02/17 09:00 03/05/17 08:19 (Depakote Er) 500 mg BID PO 03/01/17 21:00 03/05/17 08:19 (Lexapro) 20 mg DAILY PO 03/02/17 09:00 03/05/17 08:20 (Latuda) 60 mg DAILY@1700 PO 03/01/17 17:00 03/04/17 17:27 (Desyrel) 50 mg HS PO 03/01/17 21:00 03/04/17 21:16 (Theragran) 1 tab DAILY PO 03/02/17 09:00 03/05/17 08:19 (Pill Splitter) 1 ea UNSCH PRN OTHER 03/01/17 17:00 A/P Assessment and Plan 26-year-old female with history of mild intellectual disability, bipolar disorder, presents from her [place] [facility] with an episode of aggressive/violent behavior Agitation with Bipolar Disorder and Intellectual Disability: unclear etiology of agitation. Patient has been calm and cooperative throughout admission at [place]. -continue home meds including Lexapro, escitalopram -added xanax 0.25mg q8h prn agitation -evaluated by psychiatry, does not meet criteria for involuntary admission -outpatient follow up with psychiatry Placement issue: initially her [place] [facility] facility did not want to accept this patient back to the facility -porter sample case to assist with discharge planning DVT Prophylaxis: patient is ambulatory Merari Velasco PA-C Mar 05, 2017 9:55 am
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
== END 2017-03-05 14:55 | disposition home or self-care (01) ==
LOC: NEDAMB 19:23 → NEDA 03-01 13:47 → NEPFCDU 03-01 17:09
PROVIDERS: ADMIT Internal Medicine; ATTEND Internal Medicine
DX: F43.25 Adjustment disorder with mixed disturbance of emotions and conduct (principal); F70 Mild intellectual disabilities; F31.9 Bipolar disorder, unspecified; R45.6 Violent behavior; Z79.899 Other long term (current) drug therapy; Z75.1 Person awaiting admission to adequate facility elsewhere
CPT/HCPCS: 99285; G0378

== ENCOUNTER 2017-08-09 19:16 | Inpatient (IN) | payer OTHER ==
[~2017-08-09] VITALS: Ht 157.5 cm; Wt 88.8 kg
[~2017-08-09 19:16] MED LIST changes: +ALPR.25 PO; -DEPA125T PO; -LURA20TA PO
[2017-08-09 19:46] VITALS: BP 125/77; PULSE 91; RESP 18; TEMP 99; O2SAT 98
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
[2017-08-10 02:17] VITALS: BP 95/61; PULSE 72; RESP 18; O2SAT 100
[2017-08-10 07:09] VITALS: BP 97/68; PULSE 74; RESP 17; O2SAT 99
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
[2017-08-10] MEDS ORDERED: ALUMINUM/MAGNESIUM/SIMETH 30 ML CUP PO PRN (14:00)
[2017-08-10] MEDS ORDERED: ACETAMINOPHEN 325 MG TAB PO PRN (14:00)
[2017-08-10] MEDS ORDERED: NICOTINE 21 MG/24 HR PATCH T-DERMAL PRN (14:00)
[2017-08-10] MEDS ORDERED: MAGNESIUM HYDROXIDE SUSP 30 ML CUP PO PRN (14:00)
[2017-08-10] MEDS ORDERED: REMOVE OLD NICODERM (NICOTINE) PATCH T-DERMAL PRN (14:15)
[2017-08-10 14:22] VITALS: BP 125/83; PULSE 96; RESP 18; O2SAT 97
[2017-08-10 16:15] VITALS: BP 131/83; PULSE 85; RESP 17; TEMP 98.1; O2SAT 100
[2017-08-11 06:26] VITALS: BP 105/66; PULSE 79; RESP 16; TEMP 97.7; O2SAT 97
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
[2017-08-11 15:34] LABS: BICARBONATE 23.3 MEQ/L (21.0-32.0); BLOOD UREA NITROGEN 13 MG/DL (7-18); CALCIUM 9.2 MG/DL (8.5-10.1); CHLORIDE 108 MEQ/L (98-107); CHOLESTEROL 137 MG/DL (120-200); CREATININE 0.85 MG/DL (0.50-1.00); GLOMERULAR FILTRATION RATE 82 ML/MIN (>89); GLUCOSE,RANDOM 119 MG/DL (74-106); SODIUM (NA) 142 MEQ/L (136-145); TRIGLYCERIDES 183 MG/DL (42-150)
[2017-08-11 15:37] LABS: CHOLESTEROL/ HDL RATIO 6.11 RATIO; FREE T4 0.89 NG/DL (0.76-1.46); HDL CHOLESTEROL 22.4 MG/DL (40.0-60.0); LDL CHOLESTEROL 78 MG/DL (0-99)
[2017-08-11 18:11] VITALS: BP 121/75; PULSE 81; RESP 18; TEMP 97.2; O2SAT 98
[2017-08-12 06:36] VITALS: BP 104/75; PULSE 85; RESP 18; TEMP 97.4; O2SAT 98
[2017-08-12 13:35] LABS: HEMOGLOBIN A1C 5.4 % (4.3-6.0)
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
[2017-08-12 17:07] VITALS: BP 126/75; PULSE 84; RESP 17; TEMP 98.2; O2SAT 98
[2017-08-13 07:04] VITALS: BP 110/57; PULSE 80; RESP 17; TEMP 97.5; O2SAT 99
--- NOTE | 2017-08-13 16:58 | HHI.PYPN ---
Subjective Remarks Patient seen and examined with nurse. Chart reviewed. We have obtained med list from patient's facility but have been unable to obtain consent from patient 's guardian. Case discussed with nursing staff who notes patient is somatic but not aggressive. Case discussed with counselor who has endeavored, without success, to reach out to family and to half-way. On my exam, patient is requesting discharge noting that she feels "stable." She denies SI/HI. Denies AVH. No mood or psychotic symptoms reported. She says that she has spoken with her public health service officer and believes that she violated probation and so must report back [facility]. No physical complaints reported to me. I once again endeavored to reach patient's guardian, Ms. Laguna and left a generic requesting a call back. Review of Systems Except as stated in HPI: all other systems reviewed are Neg Mental Status Examination Appearance: Appropriate Consciousness: Alert Orientation: x4 Motor Activity: Normal gait Speech: Unremarkable Language: Adequate Fund of Knowledge: Adequate Attention and Concentration: Adequate Memory: Unremarkable Mood: Appropriate Affect: Appropriate (Somewhat child like) Thought Process & Associations: Intact Thought Content: Appropriate Hallucination Type: None Delusion Type: None Suicidal Ideation: No Suicidal Plan: No Suicidal Intention: No Homicidal Ideation: No Homicidal Plan: No Homicidal Intention: No Insight: Poor Judgment: Poor Results Labs Labs reviewed Vitals/IOs Vital Signs Date Time Temp Pulse Resp B/P (MAP) Pulse Ox O2 Delivery O2 Flow Rate FiO2 08/13/17 07:04 97.5 80 17 110/57 (74) 99 08/10/17 14:22 Room Air Assessment & Plan Problem List: (1) Adjustment disorder with mixed disturbance of emotions and conduct ICD Codes: F43.25 - Adjustment disorder with mixed disturbance of emotions and conduct Status: Acute (2) Intellectual disability ICD Codes: F79 - Unspecified intellectual disabilities Assessment & Plan Psychotropic medications remain on hold for lack of consent. Patient is requesting discharge from the hospital today, but counselor has been unable to ascertain where patient would go on discharge. In particular, he has been unable to confirm patient can return to facility. Absent a safe discharge plan , I will retain the patient on the unit for now. Continue other medications and care as ordered. Justification for Cont. Inpt. Discharge planning. Risk for decompensation in less restrictive environment. Discharge Planning Discharge plan to be determined. Request HC Surrog/Guard Advoc?: Yes Gorge Shaffer MD August 13, 2017 16:58
[2017-08-13 17:02] VITALS: BP 125/60; PULSE 87; RESP 16; TEMP 97.9; O2SAT 99
[2017-08-14 06:06] VITALS: BP 95/45; PULSE 83; RESP 18; TEMP 97.5; O2SAT 100
--- NOTE | 2017-08-14 11:47 | HHI.PYPN ---
Subjective Remarks Patient seen and examined with counselor and nurse. Chart reviewed. Case discussed with nursing staff. No behavioral issues noted. Case discussed in treatment team. On my exam today, patient denies SI/HI. Denies AVH. No mood or psychotic symptoms. No physical complaints. Hopeful for discharge soon and remains aware that discharge will likely be to prison. Had teleconference with counselor Jese and patient's [employer] worker Kitty. Kitty notes that patient is not allowed to return to intermediate. She further confirms that patient has violated probation and will have to report to prison once warrant has been obtained. She reports there is no available temporary housing for patient, and so patient is without a safe discharge plan at present. Was able to reach patient's guardian, Ms. Laguna, this afternoon. She confirms that she is patient's guardian and will fax legal paperwork to us for record. She notes that she is a former casework manager for patient. She notes that patient previously received highest level of services from [employer] but has since been downgraded and consequently has been placed in group homes inadequate to meet patient's needs. She notes that there is a FH of BPAD. We discuss that probable discharge plan will be to prison. She provides consent for psychotropics. Review of Systems Except as stated in HPI: all other systems reviewed are Neg Mental Status Examination Appearance: Appropriate Consciousness: Alert Orientation: x4 Motor Activity: Normal gait Speech: Unremarkable Language: Adequate Fund of Knowledge: Adequate Attention and Concentration: Adequate Memory: Unremarkable Mood: Appropriate Affect: Euthymic (Somewhat childlike) Thought Process & Associations: Intact Thought Content: Appropriate Hallucination Type: None Delusion Type: None Suicidal Ideation: No Suicidal Plan: No Suicidal Intention: No Homicidal Ideation: No Homicidal Plan: No Homicidal Intention: No Insight: Poor Judgment: Poor Results Labs Labs reviewed. Vitals/IOs Vital Signs Date Time Temp Pulse Resp B/P (MAP) Pulse Ox O2 Delivery O2 Flow Rate FiO2 08/14/17 06:06 97.5 83 18 95/45 (62) 100 08/10/17 14:22 Room Air Assessment & Plan Problem List: (1) Adjustment disorder with mixed disturbance of emotions and conduct ICD Codes: F43.25 - Adjustment disorder with mixed disturbance of emotions and conduct Status: Acute (2) Intellectual disability ICD Codes: F79 - Unspecified intellectual disabilities Assessment & Plan Resume psychotropics as ordered on outpatient basis: Zyprexa 20mg qHS, Depakote DR 1g BID, Topamax 100mg BID and Lexapro 20mg daily. Check bHCG. Check LFTs in morning as patient had mild transaminitis when last checked, and this may be worsened by Depakote. Transfer patient to lower acuity unit. Continue other meds and care as ordered. Justification for Cont. Inpt. Resuming home meds. No safe discharge plan at present. Discharge Planning Possible d/c to prison later this week. I note for the record my dismay that this is the only viable discharge plan for this patient. Request HC Surrog/Guard Advoc?: Yes Gorge Shaffer MD August 14, 2017 11:47
[2017-08-14] MEDS: BENZTROPINE MESYLATE 1 MG TAB PO SCH (21:33)
[2017-08-14] MEDS: DIVALPROEX DR 500 MG TABEC PO SCH (21:33)
[2017-08-14] MEDS: TOPIRAMATE 100 MG TAB PO SCH (21:33)
[2017-08-14] MEDS: traZODone HCL 100 MG TAB PO SCH (21:33)
[2017-08-14 23:57] VITALS: BP 106/70; PULSE 83; RESP 16
[2017-08-15 06:35] VITALS: BP 100/51; PULSE 65; RESP 18; TEMP 98.5; O2SAT 98
[2017-08-15] MEDS: DIVALPROEX DR 500 MG TABEC PO SCH ×2 (08:49→21:00)
[2017-08-15] MEDS: TOPIRAMATE 100 MG TAB PO SCH ×2 (08:50→20:59)
[2017-08-15] MEDS: ESCITALOPRAM OXALATE 20 MG TAB PO SCH (08:50)
--- NOTE | 2017-08-15 10:07 | HHI.PYPN ---
Subjective Remarks Patient seen and examined in front of nursing station. Chart reviewed. Case discussed with nursing staff. No behavioral issues reported overnight. On my examination today, the patient is somewhat attention seeking and intrusive. She denies any SI/HI. Denies AVH. She does complain of mild subjective tremor now that she is back on psychotropics. I see no objective evidence of tremor. She reports no other side effects from medications. Complains of pruritus on nose, no evidence of rash. No other physical complaints. Review of Systems ROS Limitations: Poor Historian Except as stated in HPI: all other systems reviewed are Neg Mental Status Examination Appearance: Appropriate Consciousness: Alert Orientation: x4 Motor Activity: Normal gait, Other (No hand tremor noted. No dystonias or dyskinesias noted.) Speech: Unremarkable Language: Adequate Fund of Knowledge: Adequate Attention and Concentration: Adequate Memory: Unremarkable Mood: Appropriate Affect: Euthymic (Remains a little childlike) Thought Process & Associations: Intact Thought Content: Appropriate Hallucination Type: None Delusion Type: None Suicidal Ideation: No Suicidal Plan: No Suicidal Intention: No Homicidal Ideation: No Homicidal Plan: No Homicidal Intention: No Insight: Poor Judgment: Poor Results Labs Test 08/14/17 17:48 Beta HCG, Qualitative LESS THAN 1 MIU/ML Labs reviewed Vitals/IOs Vital Signs Date Time Temp Pulse Resp B/P (MAP) Pulse Ox O2 Delivery O2 Flow Rate FiO2 08/15/17 06:35 98.5 65 18 100/51 (67) 98 Assessment & Plan Problem List: (1) Adjustment disorder with mixed disturbance of emotions and conduct ICD Codes: F43.25 - Adjustment disorder with mixed disturbance of emotions and conduct Status: Acute (2) Intellectual disability ICD Codes: F79 - Unspecified intellectual disabilities Assessment & Plan Continue current psychotropics as ordered. I will make Cogentin available as needed in addition to patient's scheduled Cogentin for EPS. Continue other medications and care as ordered. Justification for Cont. Inpt. Risk for decompensation in less restrictive environment. Discharge Planning Pending safe discharge plan. Case discussed with counselor. Request HC Surrog/Guard Advoc?: Yes Gorge Shaffer MD August 15, 2017 10:07
[2017-08-15] MEDS ORDERED: BENZTROPINE MESYLATE 2 MG/2 ML VIAL IM PRN (10:15)
[2017-08-15] MEDS ORDERED: diphenhydrAMINE HCL 2%/ZINC ACETATE 0.1% CREAM 30 APPLIC/30 GM TUBE TOPICAL PRN (10:15)
[2017-08-15] MEDS ORDERED: BENZTROPINE MESYLATE 1 MG TAB PO PRN (10:15)
[2017-08-15 18:11] VITALS: BP 113/53; PULSE 79; RESP 17; TEMP 97.5; O2SAT 97
[2017-08-15] MEDS: traZODone HCL 100 MG TAB PO SCH (21:00)
[2017-08-15] MEDS: BENZTROPINE MESYLATE 1 MG TAB PO SCH (21:00)
[2017-08-16 05:31] VITALS: BP 115/76; PULSE 89; RESP 16; TEMP 98; O2SAT 98
[2017-08-16] MEDS: ESCITALOPRAM OXALATE 20 MG TAB PO SCH (08:19)
[2017-08-16] MEDS: TOPIRAMATE 100 MG TAB PO SCH ×2 (08:19→21:20)
[2017-08-16] MEDS: DIVALPROEX DR 500 MG TABEC PO SCH ×2 (08:19→21:19)
[2017-08-16 08:46] LABS: ALBUMIN 3.6 GM/DL (3.4-5.0); DIRECT BILIRUBIN ADULT 0.1 MG/DL (0.0-0.2)
[2017-08-16 08:48] LABS: INDIRECT BILIRUBIN 0.2 MG/DL (0.0-0.8); TOTAL BILIRUBIN ADULT 0.3 MG/DL (0.2-1.0); TOTAL PROTEIN 7.8 GM/DL (6.4-8.2)
--- NOTE | 2017-08-16 12:40 | HHI.PYPN ---
Subjective Remarks Patient seen and case discussed with nurse. Chart reviewed. Per nursing staff , patient has been no behavioral problem. She is medication compliant. Sleeping and eating well. For me today, patient remains calm and in good behavioral control. No SI or HI voiced. Her case was presented to Carr Act court today and was placed in continuance for 4 weeks with guardian Ms. Laguna to act as GA. Patient's [employer] worker was also present for the hearing. Review of Systems Other Limited ROS today Mental Status Examination Appearance: Appropriate Consciousness: Alert Orientation: Person, Place (At least) Motor Activity: Normal gait, Other (No hand tremor noted. No dystonias or dyskinesias noted.) Speech: Unremarkable Language: Adequate Fund of Knowledge: Adequate Attention and Concentration: Adequate Memory: Unremarkable Mood: Appropriate Affect: Appropriate Thought Process & Associations: Intact Thought Content: Appropriate Hallucination Type: None Delusion Type: None Insight: Poor Judgment: Poor Mental Status Exam Remarks No SI or HI voiced. Results Labs Test 08/16/17 08:03 Total Bilirubin 0.3 MG/DL Direct Bilirubin 0.1 MG/DL Indirect Bilirubin 0.2 MG/DL Aspartate Amino Transf (AST/SGOT) 33 U/L Alanine Aminotransferase (ALT/SGPT) 61 U/L Alkaline Phosphatase 35 U/L Total Protein 7.8 GM/DL Albumin 3.6 GM/DL Labs reviewed. Transaminitis improved compared to previous. Vitals/IOs Vital Signs Date Time Temp Pulse Resp B/P (MAP) Pulse Ox O2 Delivery O2 Flow Rate FiO2 08/16/17 05:31 98.0 89 16 115/76 (89) 98 Assessment & Plan Problem List: (1) Adjustment disorder with mixed disturbance of emotions and conduct ICD Codes: F43.25 - Adjustment disorder with mixed disturbance of emotions and conduct Status: Acute (2) Intellectual disability ICD Codes: F79 - Unspecified intellectual disabilities Assessment & Plan Continue current psychotropics as ordered. I have ordered a Depakote and ammonia level to be drawn over the weekend. Continue to monitor on the inpatient unit. Continue other medications and care as ordered. Justification for Cont. Inpt. No safe discharge plan at present. Discharge Planning Pending safe discharge plan. Case discussed with counselor. Request HC Surrog/Guard Advoc?: Yes Gorge Shaffer MD August 16, 2017 12:40
[2017-08-16 16:55] VITALS: BP 121/70; PULSE 78; RESP 16; TEMP 98.2; O2SAT 99
[2017-08-16] MEDS: BENZTROPINE MESYLATE 1 MG TAB PO SCH (21:18)
[2017-08-16] MEDS: traZODone HCL 100 MG TAB PO SCH (21:20)
[2017-08-17 05:32] VITALS: BP 94/69; PULSE 61; RESP 16; TEMP 98.4; O2SAT 98
[2017-08-17 06:14] VITALS: BP 112/70; PULSE 72
[2017-08-17] MEDS: DIVALPROEX DR 500 MG TABEC PO SCH ×2 (09:23→21:11)
[2017-08-17] MEDS: TOPIRAMATE 100 MG TAB PO SCH ×2 (09:23→21:12)
[2017-08-17] MEDS: ESCITALOPRAM OXALATE 20 MG TAB PO SCH (09:23)
--- NOTE | 2017-08-17 11:38 | HHI.PYPN ---
Subjective Remarks Patient seen in the nathan with nurse Nesha, chart reviewed, patient complaint medications, patient discussed with nurse. Patient calm and pleasant with me in a somewhat simple and childlike in her responses. She also appears somewhat manipulative. Not complaining of some urinary incontinence though no moves significant dysuria. We will check urinalysis. Patient has been compliant with medications including the Depakote. I will order a Depakote blood level for tomorrow morning. Patient denies suicidality voices or visions. Review of Systems Genitourinary: COMPLAINS OF: Urinary incontinence, Urgency Except as stated in HPI: all other systems reviewed are Neg Mental Status Examination Appearance: Appropriate Consciousness: Alert Orientation: Person, Place (At least) Motor Activity: Normal gait, Other (No hand tremor noted. No dystonias or dyskinesias noted.) Speech: Unremarkable Language: Adequate Fund of Knowledge: Adequate Attention and Concentration: Adequate Memory: Unremarkable Mood: Appropriate Affect: Appropriate Thought Process & Associations: Intact Thought Content: Appropriate Hallucination Type: None Delusion Type: None Insight: Poor Judgment: Poor Results Vitals/IOs Vital Signs Date Time Temp Pulse Resp B/P (MAP) Pulse Ox O2 Delivery O2 Flow Rate FiO2 08/17/17 06:14 72 112/70 (84) 08/17/17 05:32 98.4 16 98 Assessment & Plan Problem List: (1) Adjustment disorder with mixed disturbance of emotions and conduct ICD Codes: F43.25 - Adjustment disorder with mixed disturbance of emotions and conduct Status: Acute (2) Intellectual disability ICD Codes: F79 - Unspecified intellectual disabilities Assessment & Plan Estimated LOS: days patient continues somewhat childlike and simple, some complaints of urinary incontinence. We will check UA, we will also check Depakote blood level in the a.m. Justification for Cont. Inpt. At this time patient would decompensate a place to a lower level of care Discharge Planning To be determined Request HC Surrog/Guard Advoc?: Yes Tremayne Gutierrez MD August 17, 2017 11:38
[2017-08-17 16:44] VITALS: BP 117/68; PULSE 79; RESP 17; TEMP 98.6; O2SAT 99
[2017-08-17 17:29] LABS: AMORPHOUS SEDIMENT, URINE FEW; BILIRUBIN, URINE NEG (NEG); BLOOD, URINE NEG (NEG); GLUCOSE,URINE NEG (NEG); KETONE, URINE NEG (NEG); NITRITE,URINE NEG (NEG); PH, URINE 7.5 (5.0-8.5); URINE COLOR YELLOW (YELLW/STRAW); URINE LEUKOCYTE ESTERASE NEG (NEG)
[2017-08-17] MEDS: BENZTROPINE MESYLATE 1 MG TAB PO SCH (21:10)
[2017-08-17] MEDS: traZODone HCL 100 MG TAB PO SCH (21:12)
[2017-08-18 06:05] VITALS: BP 110/60; PULSE 90; RESP 18; TEMP 98.1; O2SAT 98
[2017-08-18] MEDS: TOPIRAMATE 100 MG TAB PO SCH ×2 (08:50→21:13)
[2017-08-18] MEDS: ESCITALOPRAM OXALATE 20 MG TAB PO SCH (08:50)
[2017-08-18] MEDS: DIVALPROEX DR 500 MG TABEC PO SCH ×2 (08:51→21:12)
--- NOTE | 2017-08-18 12:15 | HHI.PYPN ---
Subjective Remarks Patient was seen and case discussed with nursing. Patient is pleasant and behaving well on the unit. Describes her mood today as "tired." Interacting with others. Compliant with medications. No outbursts Mental Status Examination Appearance: Appropriate Consciousness: Alert Orientation: Person, Place (At least) Motor Activity: Normal gait, Other (No hand tremor noted. No dystonias or dyskinesias noted.) Speech: Unremarkable Language: Adequate Fund of Knowledge: Adequate Attention and Concentration: Adequate Memory: Unremarkable Mood: Appropriate Affect: Appropriate Thought Process & Associations: Intact Thought Content: Appropriate Hallucination Type: None Delusion Type: None Insight: Poor Judgment: Poor Results Labs Test 08/18/17 08:25 Valproic Acid (Depakene) Level 80 MCG/ML Vitals/IOs Vital Signs Date Time Temp Pulse Resp B/P (MAP) Pulse Ox O2 Delivery O2 Flow Rate FiO2 08/18/17 06:05 98.1 90 18 110/60 (77) 98 Intake and Output 08/18/17 08/18/17 08/19/17 08:00 16:00 00:00 Intake Total 240 ml Balance 240 ml Assessment & Plan Problem List: (1) Adjustment disorder with mixed disturbance of emotions and conduct ICD Codes: F43.25 - Adjustment disorder with mixed disturbance of emotions and conduct Status: Acute (2) Intellectual disability ICD Codes: F79 - Unspecified intellectual disabilities Assessment & Plan Continue current treatment plan Justification for Cont. Inpt. Patient would decompensate in a less restrictive setting Request HC Surrog/Guard Advoc?: Yes Satya Major DO August 18, 2017 12:15
[2017-08-18 17:30] VITALS: BP_SYST 112; BP_SYST 99; BP_DIAS 72; PULSE 78; RESP 18; TEMP 98.2
[2017-08-18] MEDS: BENZTROPINE MESYLATE 1 MG TAB PO SCH (21:11)
[2017-08-18] MEDS: traZODone HCL 100 MG TAB PO SCH (21:12)
[2017-08-19 05:46] VITALS: BP 101/60; PULSE 58; RESP 16; TEMP 98.1; O2SAT 99
[2017-08-19] MEDS: DIVALPROEX DR 500 MG TABEC PO SCH ×2 (08:53→21:32)
[2017-08-19] MEDS: TOPIRAMATE 100 MG TAB PO SCH ×2 (08:53→21:32)
[2017-08-19] MEDS: ESCITALOPRAM OXALATE 20 MG TAB PO SCH (08:53)
--- NOTE | 2017-08-19 12:26 | HHI.PYPN ---
Subjective Remarks Patient was seen and case discussed with nursing. Patient is sociable and behaving well on the unit. Compliant with medications. No outbursts today. Behavior remains childlike Mental Status Examination Appearance: Appropriate Consciousness: Alert Orientation: Person, Place (At least) Motor Activity: Normal gait, Other (No hand tremor noted. No dystonias or dyskinesias noted.) Speech: Unremarkable Language: Adequate Fund of Knowledge: Adequate Attention and Concentration: Adequate Memory: Unremarkable Mood: Appropriate Affect: Appropriate Thought Process & Associations: Intact Thought Content: Appropriate Hallucination Type: None Delusion Type: None Insight: Poor Judgment: Poor Results Vitals/IOs Vital Signs Date Time Temp Pulse Resp B/P (MAP) Pulse Ox O2 Delivery O2 Flow Rate FiO2 08/19/17 05:46 98.1 58 16 101/60 (74) 99 Assessment & Plan Problem List: (1) Adjustment disorder with mixed disturbance of emotions and conduct ICD Codes: F43.25 - Adjustment disorder with mixed disturbance of emotions and conduct Status: Acute (2) Intellectual disability ICD Codes: F79 - Unspecified intellectual disabilities Assessment & Plan Continue current treatment plan Justification for Cont. Inpt. Patient would decompensate in a less restrictive setting Request HC Surrog/Guard Advoc?: Yes Satya Major DO August 19, 2017 12:26
[2017-08-19 17:56] VITALS: BP 93/61; PULSE 74; RESP 16; TEMP 98; O2SAT 99
[2017-08-19] MEDS: traZODone HCL 100 MG TAB PO SCH (21:32)
[2017-08-19] MEDS: BENZTROPINE MESYLATE 1 MG TAB PO SCH (21:32)
[2017-08-20 06:07] VITALS: BP 104/61; PULSE 64; RESP 17; TEMP 98.4; O2SAT 99
[2017-08-20] MEDS: DIVALPROEX DR 500 MG TABEC PO SCH ×2 (08:44→20:50)
[2017-08-20] MEDS: TOPIRAMATE 100 MG TAB PO SCH ×2 (08:45→20:52)
[2017-08-20] MEDS: ESCITALOPRAM OXALATE 20 MG TAB PO SCH (08:45)
--- NOTE | 2017-08-20 09:03 | HHI.PYPN ---
Subjective Remarks Patient seen and examined in front of nursing station. Chart reviewed. Case discussed with nursing staff. Patient has been no behavioral problem. She has been experiencing mild enuresis at night. Case discussed with counselor. We are still awaiting word regarding discharge plan from [employer] worker. I have instructed counselor to check with [employer] worker to see if some alternate discharge plan can be arranged to avert sending patient to nursing home. On my exam, patient is calm and cooperative. She remains fairly childlike. She denies any SI/HI. She denies any AVH. Sleeping well, 7 hours charted. No evidence of confusion or encephalopathy. Continues to complain of nocturnal enuresis, remains mild. No medication side effects. No physical complaints. Review of Systems Except as stated in HPI: all other systems reviewed are Neg Mental Status Examination Appearance: Appropriate Consciousness: Alert Orientation: Person, Place, Date/Time Motor Activity: Normal gait, Other (No motor abnormalities noted) Speech: Unremarkable Language: Adequate Fund of Knowledge: Adequate Attention and Concentration: Adequate Memory: Unremarkable Mood: Appropriate Affect: Appropriate (Remains somewhat childlike) Thought Process & Associations: Intact Thought Content: Appropriate Hallucination Type: None Delusion Type: None Suicidal Ideation: No Suicidal Plan: No Suicidal Intention: No Homicidal Ideation: No Homicidal Plan: No Homicidal Intention: No Insight: Poor Judgment: Poor Results Labs Test 08/19/17 21:12 Ammonia 59 MCMOL/L Valproic Acid (Depakene) Level 89 MCG/ML Labs reviewed. Depakote level within the therapeutic range. Ammonia level somewhat elevated, but there is no evidence of hyperammonemic encephalopathy. UA obtained over the weekend was bland. Vitals/IOs Vital Signs Date Time Temp Pulse Resp B/P (MAP) Pulse Ox O2 Delivery O2 Flow Rate FiO2 08/20/17 06:07 98.4 64 17 104/61 (75) 99 Assessment & Plan Problem List: (1) Adjustment disorder with mixed disturbance of emotions and conduct ICD Codes: F43.25 - Adjustment disorder with mixed disturbance of emotions and conduct Status: Acute (2) Intellectual disability ICD Codes: F79 - Unspecified intellectual disabilities Assessment & Plan Nocturnal enuresis may be related to oversedation from medications. Taper trazodone to 50 mg at bedtime. Continue other psychotropics as ordered. I will not empirically treat patient's hyperammonemia at this time as she has no signs of encephalopathy. Plan for periodic ammonia level monitoring with ongoing evaluation of patient's mental status. Continue to monitor on the inpatient unit. Continue other medications and care as ordered. Justification for Cont. Inpt. Medication changes. Risk for decompensation in less restrictive environment. Discharge Planning Pending safe discharge plan Request HC Surrog/Guard Advoc?: Yes Gorge Shaffer MD August 20, 2017 09:03
[2017-08-20] MEDS ORDERED: traZODone HCL 50 MG TAB PO SCH ×2 (15:00→21:00)
[2017-08-20] MEDS: BENZTROPINE MESYLATE 1 MG TAB PO SCH (20:50)
[2017-08-21 06:10] VITALS: BP 100/57; PULSE 64; RESP 18; TEMP 98.1; O2SAT 97
[2017-08-21] MEDS: DIVALPROEX DR 500 MG TABEC PO SCH (08:41)
[2017-08-21] MEDS: ESCITALOPRAM OXALATE 20 MG TAB PO SCH (08:41)
[2017-08-21] MEDS: TOPIRAMATE 100 MG TAB PO SCH (08:42)
--- NOTE | 2017-08-21 09:49 | HHI.PYPN ---
Mental Status Examination Appearance: Appropriate Consciousness: Alert Orientation: Person, Place, Date/Time Motor Activity: Normal gait, Other (No motor abnormalities noted) Speech: Unremarkable Language: Adequate Fund of Knowledge: Adequate Attention and Concentration: Adequate Memory: Unremarkable Mood: Appropriate Affect: Appropriate (Remains somewhat childlike) Thought Process & Associations: Intact Thought Content: Appropriate Hallucination Type: None Delusion Type: None Suicidal Ideation: No Suicidal Plan: No Suicidal Intention: No Homicidal Ideation: No Homicidal Plan: No Homicidal Intention: No Insight: Poor Judgment: Poor Results Vitals/IOs Vital Signs Date Time Temp Pulse Resp B/P (MAP) Pulse Ox O2 Delivery O2 Flow Rate FiO2 08/21/17 06:10 98.1 64 18 100/57 (71) 97 Assessment & Plan Problem List: (1) Adjustment disorder with mixed disturbance of emotions and conduct ICD Codes: F43.25 - Adjustment disorder with mixed disturbance of emotions and conduct Status: Acute (2) Intellectual disability ICD Codes: F79 - Unspecified intellectual disabilities Assessment & Plan Estimated LOS: days Request HC Surrog/Guard Advoc?: Yes Gorge Shaffer MD August 21, 2017 09:49
[2017-08-21] MEDS ORDERED: SM A2CRE3 TOPICAL (11:59)
[2017-08-21] MEDS ORDERED: Benztropine PO (11:59)
[2017-08-21] MEDS ORDERED: TRAZ50TA12 PO (11:59)
[2017-08-21] MEDS ORDERED: ESCI20TA PO (11:59)
[2017-08-21] MEDS ORDERED: DIVA500T PO (11:59)
[2017-08-21] MEDS ORDERED: TOPI100 PO (11:59)
--- NOTE | 2017-08-21 11:59 | HHI.DS ---
Psychiatry Discharge Summary Advance Directive: No Reason Not Provided: DOES NOT HAVE Mental Health AdvanceDirective: No Admission Admission Date August 10, 2017 at 13:58 Admission Diagnosis: Tobacco Use In Past 30 Days: No Tobacco Past 30 Days Alcohol Use: Never Results Blood Pressure 100 / 57 Vital Signs Date Time Temp Pulse Resp B/P (MAP) Pulse Ox O2 Delivery O2 Flow Rate FiO2 08/21/17 06:10 98.1 64 18 100/57 (71) 97 Laboratory Tests Test 08/19/17 21:12 Ammonia 59 MCMOL/L (11-32) Laboratory Results Test 08/11/17 13:59 08/19/17 21:12 Cholesterol Level 137 MG/DL (120-200) HDL Cholesterol 22.4 MG/DL (40.0-60.0) Hemoglobin A1c 5.4 % (4.3-6.0) LDL Cholesterol 78 MG/DL (0-99) Triglycerides Level 183 MG/DL (42-150) Valproic Acid (Depakene) Level 89 MCG/ML (50-100) Medications Approp Antipsych med options 1 - Minimum of three failed multiple trials of monotherapy. 2 - Documented plan to taper to monotherapy due to previous use of multiple meds OR cross-taper in progress at D/C. 3 - Documentation of augmentation of Clozapine. 4 - Justification other than those listed in allowable values 1-3, document here : Discharge Pt Condition on Discharge: Stable Discharge Disposition: Dis to Court Law Enforcem Discharge Instructions Diet Instructions: As Tolerated, No Restrictions Activities you can perform: Weight Bearing as [place] Mental Status Examination Appearance: Appropriate Consciousness: Alert Orientation: Person, Place, Date/Time Motor Activity: Normal gait, Other (No motor abnormalities noted) Speech: Unremarkable Language: Adequate Fund of Knowledge: Adequate Attention and Concentration: Adequate Memory: Unremarkable Mood: Appropriate Affect: Appropriate (Remains somewhat childlike) Thought Process & Associations: Intact Thought Content: Appropriate Hallucination Type: None Delusion Type: None Suicidal Ideation: No Suicidal Plan: No Suicidal Intention: No Homicidal Ideation: No Homicidal Plan: No Homicidal Intention: No Insight: Poor Judgment: Poor Discharge/Advance Care Plan Health Problems: (1) Adjustment disorder with mixed disturbance of emotions and conduct (2) Intellectual disability Goals to promote your health * To prevent worsening of your condition and complications * To maintain your health at the optimal level Directions to meet your goals Take your medications as prescribed Follow your dietary instruction Follow activity as directed Keep your appointments as scheduled Take your immunizations and boosters as scheduled If your symptoms worsen call your PCP, if no PCP go to Urgent Care Center or Emergency Room For 30/10 questions related to your inpatient stay or results of tests pending at discharge, please contact Dr. Gorge Shaffer at Smoking is Dangerous to Your Health. Avoid second hand smoking Gorge Shaffer MD August 21, 2017 11:59
--- NOTE | 2017-08-21 15:03 | HHI.PYPN ---
Subjective Remarks Patient seen and examined with nurse. Chart reviewed. Case discussed with nursing staff. Case discussed in treatment team. Counselor had initially believed that patient might be able to be discharged today but has since notified me that there is not yet a safe discharge plan. I have instructed counselor to reach out to [employer] worker to advocate for pursuing multiple avenues for appropriate housing for this patient, rather than simply relying on plan for discharge to detention. On my exam, patient is hopeful for discharge soon. She is pleased with her current psychotropic regimen and does not wish to have any further adjustments to it. She reports that her nocturnal enuresis is much improved with tapering of trazodone (although she does not want this discontinued entirely). She denies SI/HI/AVH. No side effects from medications. No physical complaints. Review of Systems Except as stated in HPI: all other systems reviewed are Neg Mental Status Examination Appearance: Appropriate Consciousness: Alert Orientation: x4 Motor Activity: Normal gait, Other (No abnormal motor movements noted) Speech: Unremarkable Language: Adequate Fund of Knowledge: Adequate Attention and Concentration: Adequate Memory: Unremarkable Mood: Appropriate Affect: Appropriate (Remains somewhat childlike) Thought Process & Associations: Intact Thought Content: Appropriate Hallucination Type: None Delusion Type: None Suicidal Ideation: No Suicidal Plan: No Suicidal Intention: No Homicidal Ideation: No Homicidal Plan: No Homicidal Intention: No Insight: Poor Judgment: Poor Results Labs Labs reviewed Vitals/IOs Vital Signs Date Time Temp Pulse Resp B/P (MAP) Pulse Ox O2 Delivery O2 Flow Rate FiO2 08/21/17 06:10 98.1 64 18 100/57 (71) 97 Assessment & Plan Problem List: (1) Adjustment disorder with mixed disturbance of emotions and conduct ICD Codes: F43.25 - Adjustment disorder with mixed disturbance of emotions and conduct Status: Acute (2) Intellectual disability ICD Codes: F79 - Unspecified intellectual disabilities Assessment & Plan Continue current psychotropics as ordered. Continue to monitor on the inpatient unit. Continue other medications and care as ordered. Justification for Cont. Inpt. Awaiting safe discharge plan Discharge Planning Awaiting safe discharge plan Request HC Surrog/Guard Advoc?: Yes Gorge Shaffer MD August 21, 2017 15:03
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
== END 2017-08-21 15:50 | DRG 882 ==
LOC: NEPJ 19:16 → NEDA 08-10 13:58 → H270 08-10 16:14 → H260 08-14 11:05
PROVIDERS: ADMIT Psychiatry & Neurology Psychiatry; ATTEND Psychiatry & Neurology Psychiatry
DX: F43.25 Adjustment disorder with mixed disturbance of emotions and conduct (principal); E72.20 Disorder of urea cycle metabolism, unspecified; F79 Unspecified intellectual disabilities; S16.1XXA Strain of muscle, fascia and tendon at neck level, initial encounter; R39.15 Urgency of urination; N39.44 Nocturnal enuresis; F31.9 Bipolar disorder, unspecified; Y04.0XXA Assault by unarmed brawl or fight, initial encounter; Z81.8 Family history of other mental and behavioral disorders; Z91.5 Personal history of self-harm
CPT/HCPCS: 80048; 80053; 80061; 80076; 80164; 80307; 81001; 82140; 83036; 84439; 84443; 84703; 85025; 99284